=== PATIENT | female | born 1960 | race African-American/Black ===

== ENCOUNTER 2016-05-02 20:55 | Observation (INO) | payer OTHER, MEDICARE ==
[~2016-05-02] VITALS: Ht 154.9 cm; Wt 56.7 kg
[~2016-05-02 20:55] MED LIST: AZITHROMYCIN250 MG PO; FLEXERIL PO; HYDROCHLOROTHIA25 MG PO; HYDROXYZINE PAM25 MG PO; PREDNISONE50 MG PO; PROVENTIL0.09 MG/A1 PO; ROBITUSSIN AC SY5 ML PO; SEROQUEL 25MG T25 MG PO; TRAMADOL HCL50 M1 PO; TRANDATE-NORMO200 MG PO; ZITHROMAX Z-PA250 M1 PO; ZYPREXA10 M1 PO; ZYPREXA10 MG PO; ZYPREXA15 MG PO
--- NOTE | 2016-05-02 21:11 | NUR ---
PT TO TRIAGE FOR C/O VOMITING SINCE YESTERDAY, ABD PAIN 12/06 ON/OFF, DENIES DIARRHEA, LAST BM TODAY WNL. PT DENIES CHEST PAIN, DENIES SOB. VSS.
--- NOTE | 2016-05-02 21:42 | ED GI/GU/ABDOMINAL COMPLAINT ---
History of Present Illness General Chief Complaint: Nausea, Vomiting, Diarrhea Stated Complaint: VOMITING X2 DAYS Source: patient, old records Exam Limitations: poor historian Vital Signs & Intake/Output Vital Signs & Intake/Output ED Intake and Output 05/05 0000 05/04 1200 Intake Total 820 910 Output Total Balance 820 910 Intake, IV 100 800 Intake, Oral 720 110 Allergies Coded Allergies: aspirin (Mild, GI DISTRESS 02/23/16) Reconcile Medications Hydrochlorothiazide 25 MG TABLET 1 TAB PO DAILY HTN (Reported) Olanzapine (Zyprexa) 10 MG TAB 1 TAB PO AT BEDTIME SLEEP (Reported) Triage Note: PT TO TRIAGE FOR C/O VOMITING SINCE YESTERDAY, ABD PAIN 12/06 ON/OFF, DENIES DIARRHEA, LAST BM TODAY WNL. PT DENIES CHEST PAIN, DENIES SOB. VSS. Triage Nurses Notes Reviewed? yes ? n Is pt currently ? No HPI: Patient is a 55-year-old female presents complaining of vomiting and mid abdominal pain. Symptoms onset yesterday. Patient reports numerous episodes of vomiting, greater than 10 over the past 24 hours. No blood present in the emesis. Upper abdominal pain is a sharp/aching pain is currently moderate to severe. Patient has not taken any medication for her symptoms. History of gastric bypass in 2002. Patient is unsure of any other abdominal surgeries. Patient denies sick contacts, fevers, chills, diarrhea, urinary symptoms. (TONY BISHOP) Past History Travel History Traveled to [place] past 21 day No Medical History Any Pertinent Medical History? see below for history Neurological: ?HX OF STROKE IN COMPUTER BUT PATIENT DENIES SAME. 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 No (TONY BISHOP) Review of Systems Review of Systems Constitutional: Denies: chills, fever. EENTM: Reports: no symptoms. Respiratory: Denies: cough, short of breath. Cardiovascular: Denies: chest pain. GI: Reports: see HPI. Genitourinary: Reports: no symptoms. Musculoskeletal: Reports: no symptoms. Skin: Reports: no symptoms. Neurological/Psychological: Reports: no symptoms. Hematologic/Endocrine: Reports: no symptoms. Immunologic/Allergic: Reports: no symptoms. (TONY BISHOP) Physical Exam Physical Exam General Appearance: alert, awake Head: atraumatic, normal appearance Eyes: Bilateral: normal appearance, PERRL, EOMI. Ears, Nose, Throat, Mouth: hearing grossly normal, moist mucous membrane Neck: normal inspection, supple, full range of motion Respiratory: normal breath sounds, chest non-tender, no respiratory distress, lungs clear Cardiovascular: regular rate/rhythm Gastrointestinal: normal bowel sounds, soft, mild right lower quadrant tenderness. Moderate mid abdominal and left-sided abdominal tenderness. Negative Chanel sign. Back: normal inspection, normal range of motion Extremities: normal range of motion Neurologic/Psych: no motor/sensory deficits, awake, alert, oriented x 3 Skin: normal color, warm/dry Core Measures ACS in differential dx? No Severe Sepsis Present: No Septic Shock Present: No (TONY BISHOP) Progress Differential Diagnosis: SBO, partial small bowel obstruction, gastroenteritis, colitis, diverticulitis, pancreatitis Plan of Care: Orders Procedure Date/time Status Discharge Patient 05/04 UNK Active 05/03/2016 12:20:14 AM: Results of CT scan discussed with patient. Discussed with Dr. Grayson: have surgical Pa come to evaluate patient. Discussed with Livia PA: will come to see patient. Discussed with Dr. Amanda. Patient evaluated by surgical PA. Plan for patient to be brought in for inpatient observation for partial small bowel obstruction. (TONY BISHOP) Diagnostic Imaging: Viewed by Me: CT Scan. Discussed w/RAD: CT Scan. Radiology Impression: PATIENT: MAU CORONA PRESENT AGE: 55 PATIENT ACCOUNT NO: [id number] : 61 LOCATION: [facility] ORDERING PHYSICIAN: TONY TREVINO SERVICE DATE: 05/02/161537 EXAM TYPE: CAT - CT ABD & PELVIS W IV CONTRAST EXAMINATION: CT ABDOMEN AND PELVIS WITH CONTRAST CLINICAL INFORMATION: Abdominal pain and vomiting. History of gastric bypass. COMPARISON: CT report from 02/15/2014, images not available. TECHNIQUE: Multidetector volumetric imaging was performed of the abdomen and pelvis before and after the IV administration of 95 mL of Optiray 320 intravenous contrast. Sagittal and coronal reformatted images were obtained on the technologist's workstation. DLP: 291 mGy-cm FINDINGS: LUNG BASES: The visualized lung bases are unremarkable. LIVER, GALLBLADDER, AND BILIARY TREE: The liver is normal in size, shape, and attenuation. No focal hepatic lesion or biliary ductal dilatation is present. The gallbladder is not seen and is likely absent. The common bile duct is dilated, measuring 1.1 cm. PANCREAS: There is focal dilatation of the pancreatic duct in the pancreatic head. The remainder of the pancreatic duct is normal in caliber with no additional focal pancreatic abnormality. SPLEEN: Unremarkable. ADRENAL GLANDS: Unremarkable. KIDNEYS AND URETERS: The kidneys are normal in size, shape, and attenuation. No hydronephrosis, hydroureter, or calculi seen. No perinephric stranding. BLADDER: Unremarkable. GASTROINTESTINAL TRACT: The patient is status post Jose Rafael-en-Y gastric bypass. The Y limb appears proximally decompressed but distally dilated in the region of the jejunojejunal anastomosis. This is seen on series 2 image 41. A focal transition is seen at the distal aspect of the anastomosis, to decompressed bowel. Additional more distal anastomoses are noted, without additional evidence of bowel dilatation. There is gas and stool seen throughout the colon. No free air or free fluid. Normal appendix. ABDOMINAL WALL: No significant hernia is appreciated. LYMPH NODES: Normal. VASCULAR: Scattered atherosclerotic calcifications. IVC filter noted. PELVIC VISCERA: The uterus is not visualized. Cystic structure in the left adnexa noted, measuring 5 x 3.5 cm. OSSEOUS STRUCTURES: Multilevel degenerative changes in the spine. No acute or suspicious abnormality. IMPRESSION: Dilated jejunum extending to the jejunojejunal anastomosis, suggestive of a partial obstruction, as there is gas and stool seen throughout the colon. Dilated common bile duct, nonspecific in the setting of cholecystectomy. Cystic structure in the left adnexa. This is previously described. DICTATED BY: MARIBELL KHAN,ALEJANDRO DATE/TIME DICTATED:05/03/161 [employer]ORAL [employer]ES PROFESSOR:KATE DATE/TIME TRANSCRIBED:05/03/161 CONFIDENTIAL, DO NOT COPY WITHOUT APPROPRIATE AUTHORIZATION. <Electronically signed in Other Vendor System> SIGNED BY: MARIBELL KHAN,ALEJANDRO 05/03/16 0016 Initial ED EKG: none (TONY BISHOP) Departure Departure Disposition: STILL A PATIENT Condition: Stable Clinical Impression Primary Impression: Partial small bowel obstruction Referrals: TASNEEM VINCENT APRN (PCP/Family) Departure Forms: Customer Survey General Discharge Information Observation Note Spoke With: ROSEMARY GRAYSON MD Patient In: Non-ED OBS Care Area Rationale for Observation: My rational for observation is as follows: IV fluids, serial abdominal exams, nothing by mouth initially (TONY BISHOP) PA/INSERTING OPERATOR Co-Sign Statement Statement: ED Attending supervision documentation- x I saw and evaluated the patient. I have also reviewed all the pertinent lab results and diagnostic results. I agree with the findings and the plan of care as documented in the PA's/INSERTING OPERATOR's documentation. [] I have reviewed the ED Record and agree with the PA's/INSERTING OPERATOR's documentation. [] Additions or exceptions (if any) to the PAs/INSERTING OPERATOR's note and plan are summarized below: [] (NELSON KHAN,EMMANUEL) Departure Disposition: STILL A PATIENT Condition: Stable Clinical Impression Primary Impression: Partial small bowel obstruction Referrals: TASNEEM VINCENT APRN (PCP/Family) Departure Forms: Customer Survey General Discharge Information Observation Note Spoke With: ROSEMARY GRAYSON MD Patient In: Non-ED OBS Care Area Rationale for Observation: My rational for observation is as follows: IV fluids, serial abdominal exams, nothing by mouth initially
--- NOTE | 2016-05-02 22:29 | NUR ---
SEEN BY ER PA EKG DONE U/A OBTAINED SENT IV 20 RIGHT AC B/W OBTAINED SENT PEPCID 20 MG IVPB ZOFRAN 4 MG IVP
[2016-05-02 22:30] LABS: MEAN CORPUSCULAR VOLUME 78.4 FL (81.0-99.0); WHITE BLOOD CELL COUNT 5.2 /CUMM (4.8-10.8)
[2016-05-02 22:38] LABS: HEMATOCRIT 32.2 % (37-47); MEAN CORPUSCULAR HGB CONC 33.2 G/DL (33.0-37.0); MEAN PLATELET VOLUME 7.2 FL (7.4-10.4); PLATELET COUNT 343 /CUMM (130-400); RBC DISTRIBUTION WIDTH 17.7 % (11.5-14.5)
--- NOTE | 2016-05-02 23:26 | NUR ---
PT C/O 6/10 PAIN AND NAUSEA. PT MEDICATED WITH REGLAN AND MORPHINE PER ORDER
--- NOTE | 2016-05-03 00:16 | CT SCAN REPORT ---
EXAMINATION: CT ABDOMEN AND PELVIS WITH CONTRAST CLINICAL INFORMATION: Abdominal pain and vomiting. History of gastric bypass. COMPARISON: CT report from 02/15/2014, images not available. TECHNIQUE: Multidetector volumetric imaging was performed of the abdomen and pelvis before and after the IV administration of 95 mL of Optiray 320 intravenous contrast. Sagittal and coronal reformatted images were obtained on the technologist's workstation. DLP: 291 mGy-cm FINDINGS: LUNG BASES: The visualized lung bases are unremarkable. LIVER, GALLBLADDER, AND BILIARY TREE: The liver is normal in size, shape, and attenuation. No focal hepatic lesion or biliary ductal dilatation is present. The gallbladder is not seen and is likely absent. The common bile duct is dilated, measuring 1.1 cm. PANCREAS: There is focal dilatation of the pancreatic duct in the pancreatic head. The remainder of the pancreatic duct is normal in caliber with no additional focal pancreatic abnormality. SPLEEN: Unremarkable. ADRENAL GLANDS: Unremarkable. KIDNEYS AND URETERS: The kidneys are normal in size, shape, and attenuation. No hydronephrosis, hydroureter, or calculi seen. No perinephric stranding. BLADDER: Unremarkable. GASTROINTESTINAL TRACT: The patient is status post Jose Rafael-en-Y gastric bypass. The Y limb appears proximally decompressed but distally dilated in the region of the jejunojejunal anastomosis. This is seen on series 2 image 41. A focal transition is seen at the distal aspect of the anastomosis, to decompressed bowel. Additional more distal anastomoses are noted, without additional evidence of bowel dilatation. There is gas and stool seen throughout the colon. No free air or free fluid. Normal appendix. ABDOMINAL WALL: No significant hernia is appreciated. LYMPH NODES: Normal. VASCULAR: Scattered atherosclerotic calcifications. IVC filter noted. PELVIC VISCERA: The uterus is not visualized. Cystic structure in the left adnexa noted, measuring 5 x 3.5 cm. OSSEOUS STRUCTURES: Multilevel degenerative changes in the spine. No acute or suspicious abnormality. IMPRESSION: Dilated jejunum extending to the jejunojejunal anastomosis, suggestive of a partial obstruction, as there is gas and stool seen throughout the colon. Dilated common bile duct, nonspecific in the setting of cholecystectomy. Cystic structure in the left adnexa. This is previously described.
--- NOTE | 2016-05-03 01:04 | History & Physical ---
WHITLEY FRITZ 05/03/16 0058: General Information and HPI MD Statement: I have seen and personally examined MAU CORONA and documented this H&P. The patient is a 55 year old F who presented with a patient stated chief complaint of []. Source of Information: patient Exam Limitations: no limitations History of Present Illness: Mrs. Corona is a 55 year old schizophrenic, legally blind, current tobacco user, and s/p laparoscopic gastric bypass surgery in 2002 in [place]. She was in her usual state of health up until two days prior to admission where she developed nausea, followed by abdominal pain. She endorsed multiple episodes of vomiting without blood, prompting her visit to the emergency room. A CT abdomen/pelvis was performed, revealing a partial small bowel obstruction arising from the J-J anastamosis. Upon further interview, she states she has been passing flatus, even in the emergency room, and her last BM was normal in [facility] this morning. She denies diarrhea. Denies F/C, CP/SOB, or sick contacts. Allergies/Medications Allergies: Coded Allergies: aspirin (Mild, GI DISTRESS 02/23/16) Home Med list Azithromycin (Zithromax Z-Christiano) 250 MG CAP 1 TAB PO DAILY INFN TAKE 2 TABS ON DAY 1, THEN 1 TAB ONCE A DAY FOR 4 MORE DAYS [FLEXERIL] 5 MG 1 TAB PO TID PRN PAIN Hydrochlorothiazide 25 MG TABLET 1 TAB PO QDAY HIGH BLOOD PRESSURE Hydroxyzine Pamoate (Hydroxyzine Angi) 25 MG CAPSULE 1 CAP PO TID UNKNOWN ( Reported) Olanzapine (Zyprexa) 10 MG TAB 1 TAB PO AT BEDTIME SLEEP (Reported) Olanzapine (Zyprexa) 10 MG TABLET 1 TAB PO QPM bipolar Robitussin AC (Guaifenesin-Codeine Syrup) 10 ML LIQUID 1 TSP PO Q6 PRN COUGH Tramadol HCl 50 MG TABLET 1 TAB PO BIDP PRN PAIN Past History Travel History Traveled to [place] past 21 day No Medical History Neurological: ?HX OF STROKE IN COMPUTER BUT PATIENT DENIES SAME. EENT: blindness Cardiovascular: hypertension, hyperlipidemia Respiratory: NONE Gastrointestinal: GERD Hepatic: NONE Renal: NONE Musculoskeletal: NONE Psychiatric: schizophrenia Endocrine: NONE Blood Disorders: NONE Cancer(s): NONE CO OP/Reproductive: NONE History of MRSA: No History of VRE: No History of CDIFF: No Surgical History Surgical History: non-contributory Past Family/Social History Psychosocial History Primary Language: Hungarian Smoking Status: Current Everyday Smoker (1 pack every 3 days-since teen) ETOH Use: denies use Illicit Drug Use: denies illicit drug use Functional Ability Ambulation: independent Review of Systems Review of Systems Constitutional: Denies: chills, fever, unexplained weight loss. Cardiovascular: Denies: chest pain. Respiratory: Denies: short of breath, wheezing. GI: Reports: abdominal pain, nausea, vomiting. Denies: diarrhea, distention, bloody stool. Exam & Diagnostic Data Last 24 Hrs of Vital Signs/I&O Vital Signs Date Time Temp Pulse Resp B/P Pulse O2 O2 Flow FiO2 Ox Delivery Rate 05/02 2325 85 18 115/70 98 05/02 2106 99.3 79 16 135/80 97 Room Air Intake & Output 05/03 0800 05/03 0000 05/02 1600 Intake Total Output Total Balance Patient 125 lb Weight Physical Exam General Appearance Alert, Oriented X3, Cooperative Cardiovascular Regular Rate, Normal S1, Normal S2 Lungs Clear to Auscultation, Normal Air Movement Abdomen Soft, tender RUQ and epigastric region to deep palpation, negative [place] sign Extremities No Edema, Normal Pulses Last 24 Hrs of Labs/Cisco: Laboratory Tests 05/03/16 0049: Lactic Acid Cancelled 05/02/162214: Anion Gap 7, Estimated GFR > 60, BUN/Creatinine Ratio 23.3, Glucose 78, Lactic Acid < 0.5 L, Calcium 9.5, Total Bilirubin 0.6, AST 28, ALT 37, Alkaline Phosphatase 88, Total Protein 6.8, Albumin 4.0, Globulin 2.8, Albumin/Globulin Ratio 1.4, Amylase 89, Lipase 231, CBC w Diff MAN DIFF ORDERED, RBC 4.10 L, MCV 78.4 L, MCH 26.0 L, RDW 17.7 H, MPV 7.2 L, Segmented Neutrophils 31 L, Lymphocytes 63 H, Monocytes 4, Eosinophils 1, Basophils 1, Platelet Estimate ADEQUATE, Hypochromic-Microcytic 2+, Poikilocytosis 1+, Anisocytosis 2+, Microcytic Cells 2+, Target Cells FEW, PUBS MCHC 33.2 05/02/16 2150: Urine Color YEL, Urine Clarity CLEAR, Urine pH 6.0, Ur Specific [place] >= 1.030 , Urine Protein NEG, Urine Ketones NEG, Urine Nitrite NEG, Urine Bilirubin NEG, Urine Urobilinogen 0.2, Ur Leukocyte Esterase NEG, Ur Microscopic EXAM NOT REQUIRED, Urine Hemoglobin NEG, Urine Glucose NEG Diagnostic Data Other Results EXAM TYPE: CAT - CT ABD & PELVIS W IV CONTRAST EXAMINATION: CT ABDOMEN AND PELVIS WITH CONTRAST CLINICAL INFORMATION: Abdominal pain and vomiting. History of gastric bypass. COMPARISON: CT report from 02/15/2014, images not available. TECHNIQUE: Multidetector volumetric imaging was performed of the abdomen and pelvis before and after the IV administration of 95 mL of Optiray 320 intravenous contrast. Sagittal and coronal reformatted images were obtained on the technologist's workstation. DLP: 291 mGy-cm FINDINGS: LUNG BASES: The visualized lung bases are unremarkable. LIVER, GALLBLADDER, AND BILIARY TREE: The liver is normal in size, shape, and attenuation. No focal hepatic lesion or biliary ductal dilatation is present. The gallbladder is not seen and is likely absent. The common bile duct is dilated, measuring 1.1 cm. PANCREAS: There is focal dilatation of the pancreatic duct in the pancreatic head. The remainder of the pancreatic duct is normal in caliber with no additional focal pancreatic abnormality. SPLEEN: Unremarkable. ADRENAL GLANDS: Unremarkable. KIDNEYS AND URETERS: The kidneys are normal in size, shape, and attenuation. No hydronephrosis, hydroureter, or calculi seen. No perinephric stranding. BLADDER: Unremarkable. GASTROINTESTINAL TRACT: The patient is status post Jose Rafael-en-Y gastric bypass. The Y limb appears proximally decompressed but distally dilated in the region of the jejunojejunal anastomosis. This is seen on series 2 image 41. A focal transition is seen at the distal aspect of the anastomosis, to decompressed bowel. Additional more distal anastomoses are noted, without additional evidence of bowel dilatation. There is gas and stool seen throughout the colon. No free air or free fluid. Normal appendix. ABDOMINAL WALL: No significant hernia is appreciated. LYMPH NODES: Normal. VASCULAR: Scattered atherosclerotic calcifications. IVC filter noted. PELVIC VISCERA: The uterus is not visualized. Cystic structure in the left adnexa noted, measuring 5 x 3.5 cm. OSSEOUS STRUCTURES: Multilevel degenerative changes in the spine. No acute or suspicious abnormality. IMPRESSION: Dilated jejunum extending to the jejunojejunal anastomosis, suggestive of a partial obstruction, as there is gas and stool seen throughout the colon. Dilated common bile duct, nonspecific in the setting of cholecystectomy. Cystic structure in the left adnexa. This is previously described. DICTATED BY: ALEJANDRO REYNA MD DATE/TIME DICTATED:05/03/161 INTERACTIVE PRODUCER:KATE DATE/TIME TRANSCRIBED:05/03/161 CONFIDENTIAL, DO NOT COPY WITHOUT APPROPRIATE AUTHORIZATION. <Electronically signed in Other Vendor System> SIGNED BY: ALEJANDRO REYNA MD 05/03 0016 Assessment/Plan Assessment: A: 55 year old female s/p laparoscopic gastric bypass in 2002 now with abdominal pain and tenderness to RUQ/epigastric area with associated N/V with CT abd/ pelvis consistent with a narrowed J-J anastamosis with findings suggestive of a partial small bowel obstruction, although clinical exam findings of having flatus and BMs do not support this. AVSS. Plan: Will observe patient overnight on Dr. Grayson's service. Will hydrate with D5NS at 100ml/hr. Patient to remain NPO. Will review medications in am. Discussed with Dr. Grayson. As Ranked By This Provider Problem List: 1. Abdominal pain Core Measures/Miscellaneous Acute Coronary Syndrome ACS Diagnosis: No Cerebrovascular Accident CVA/TIA Diagnosis: No Congestive Heart Failure CHF Diagnosis: No Venous Thromboembolism VTE Risk Factors: Age > 40, Smoking VTE Prophylaxis Ordered Inpt: Mech & Pharm No Mech VTE prophylaxis d/t: No contraindications No VTE Pharm Prophylaxis d/t: No contraindications VTE Diagnosis: No VTE Type: NONE VTE Confirmed by (Test): NONE Severe Sepsis Severe Sepsis Present: No Septic Shock Septic Shock Present: No Miscellaneous Documentation Attending Case Discussed With: Dr. Grayson Primary Care Physician: TASNEEM VINCENT APRN Patient sees these Specialists n/a Level of Patient Care: General Surgical ROSEMARY GRAYSON MD 05/03/16 1315: Attending MD Review Statement Attending Statement Attending MD Statement: examined this patient, discuss w/resident/PA/DIGITAL ANALYST, reviewed images Attending Assessment/Plan: Patient s/p gastric bypass and open cholecytectomy many years ago presents with acute onset of mid abdominal pain and vomiting. He symptoms have resolved now and c/o chest pain after IV contrast dye. Denies heartburn, dysphagia, odynophagia or regurgitation. CT personally reviewed. Findings show dilated small bowel at the jejujejunostomy site. This is a normal finding in the post gastic bypass patient. However, in light of her abdominal pain and vomiting that prompted admission, recommend repeat CT with oral contrast. If no obstructive process, she can be discharged home.
--- NOTE | 2016-05-03 01:17 | NUR ---
PT A/O X4. RESP UNLABORED. SKIN WARM AND DRY. PT APPEARS COMFORTABLE. NO APPARENT DISTRESS. WILL CONTINUE TO MONITOR.
--- NOTE | 2016-05-03 02:21 | NUR ---
[facility] ASSIGNMENT [phone]
[2016-05-03 02:56] VITALS: BP 118/70
--- NOTE | 2016-05-03 05:38 | Admission Core Measures ---
Admission Lab Results I reviewed the following labs: Laboratory Tests 05/03 05/02 0040 0565 Chemistry Sodium (137 - 145 mmol/L) 141 Potassium (3.5 - 5.1 mmol/L) 4.1 Chloride (98 - 107 mmol/L) 106 Carbon Dioxide (22 - 30 mmol/L) 28 Anion Gap (5 - 16) 7 BUN (7 - 17 mg/dL) 14 Creatinine (0.5 - 1.0 mg/dL) 0.6 Estimated GFR (>60 ml/min) > 60 BUN/Creatinine Ratio (7 - 25 %) 23.3 Glucose (65 - 99 mg/dL) 78 Lactic Acid (0.7 - 2.1 mmol/L) Cancelled < 0.5 L Calcium (8.4 - 10.2 mg/dL) 9.5 Total Bilirubin (0.2 - 1.3 mg/dL) 0.6 AST (14 - 36 U/L) 28 ALT (9 - 52 U/L) 37 Alkaline Phosphatase (<127 U/L) 88 Total Protein (6.3 - 8.2 g/dL) 6.8 Albumin (3.5 - 5.0 g/dL) 4.0 Globulin (1.9 - 4.2 gm/dL) 2.8 Albumin/Globulin Ratio (1.1 - 2.2 %) 1.4 Amylase (30 - 110 U/L) 89 Lipase (23 - 300 U/L) 231 Hematology CBC w Diff MAN DIFF ORDERED WBC (4.8 - 10.8 /CUMM) 5.2 RBC (4.20 - 5.40 /CUMM) 4.10 L Hgb (12.0 - 16.0 G/DL) 10.7 L Hct (37 - 47 %) 32.2 L MCV (81.0 - 99.0 FL) 78.4 L MCH (27.0 - 31.0 PG) 26.0 L RDW (11.5 - 14.5 %) 17.7 H Plt Count (130 - 400 /CUMM) 343 MPV (7.4 - 10.4 FL) 7.2 L Segmented Neutrophils (42.2 - 75.2 %) 31 L Lymphocytes (20.5 - 51.1 %) 63 H Monocytes (1.7 - 9.3 %) 4 Eosinophils (0 - 5.0 %) 1 Basophils (0.0 - 2.0 %) 1 Platelet Estimate (ADEQUATE) ADEQUATE Hypochromic-Microcytic 2+ Poikilocytosis 1+ Anisocytosis 2+ Microcytic Cells 2+ Target Cells FEW PUBS MCHC (33.0 - 37.0 G/DL) 33.2 05/02 2150 Urines Urine Color (YEL,AMB,STR) YEL Urine Clarity (CLEAR) CLEAR Urine pH (5.0 - 8.0) 6.0 Ur Specific [place] (1.001 - 1.035) >= 1.030 Urine Protein (NEG,<30 MG/DL) NEG Urine Ketones (NEG) NEG Urine Nitrite (NEG) NEG Urine Bilirubin (NEG) NEG Urine Urobilinogen (0.1 - 1.0 EU/dl) 0.2 Ur Leukocyte Esterase (NEG) NEG Ur Microscopic EXAM NOT REQUIRED Urine Hemoglobin (NEG) NEG Urine Glucose (N MG/DL) NEG Admission Meds I reviewed the following Meds: Current Medications Sig/Zachariah Start time Last Medication Dose Stop Time Status Admin Heparin Sodium 5,000 UNIT Q8 05/03 0600 AC (Porcine) Acute Coronary Syndrome Inclusion Criteria ACS Diagnosis No Inpatient Core Measures LDL Reminder: If No, please order W/I first 24hr of stay Congestive Heart Failure Inclusion Criteria CHF Diagnosis No Cerebrovascular accident Inclusion Criteria CVA/TIA Diagnosis No Inpatient Core Measures Bedside Swallow Eval Reminder: If BSE failed, place ST order Antithrombotic Reminder: Order Antithrombotic Medication by end of day 2 Antithrombotic Reminder: Document Reason Antithrombotic Not ordered by end of day 2 AFIB/Flutter Reminder: If Present, add to problem list AFIB/Flutter Reminder: Order Anticoag Medication for pts with AFIB/Flutter Atherosclerosis Reminder: If Present, add to problem list LDL Reminder: If No, please order W/I first 24hr of stay PT Order Reminder: If No, please order Venous thromboembolism Inpatient Core Measures VTE Risk Factors: Age > 40, Smoking VTE Prophylaxis Ordered Inpt Mech & Pharm No Mech VTE prophylaxis d/t No contraindications No VTE Pharm Prophylaxis d/t No contraindications Inclusion Criteria - Per Current guidelines, there needs to be overlap - treatment for the first 5 days of Warfarin therapy. - Parenteral Anticoagulation (IV or SC) needs to be - given along with Warfarin therapy. VTE Diagnosis No VTE Type NONE VTE Confirmed by (Test) NONE Problem List As ranked by this Provider includes Assessment & Plan 1. Abdominal pain HOME MEDS Home Med List Azithromycin (Zithromax Z-Christiano) 250 MG CAP 1 TAB PO DAILY INFN [FLEXERIL] 5 MG 1 TAB PO TID PRN PAIN Hydrochlorothiazide 25 MG TABLET 1 TAB PO QDAY HIGH BLOOD PRESSURE Hydroxyzine Pamoate (Hydroxyzine Angi) 25 MG CAPSULE 1 CAP PO TID UNKNOWN ( Reported) Olanzapine (Zyprexa) 10 MG TAB 1 TAB PO AT BEDTIME SLEEP (Reported) Olanzapine (Zyprexa) 10 MG TABLET 1 TAB PO QPM bipolar Robitussin AC (Guaifenesin-Codeine Syrup) 10 ML LIQUID 1 TSP PO Q6 PRN COUGH Tramadol HCl 50 MG TABLET 1 TAB PO BIDP PRN PAIN
--- NOTE | 2016-05-03 08:21 | PN- General Surgery ---
See Addendum Subjective Subjective: Pt is a 55 yo F with a hx of gastric bypass many years ago, who is now HD #1 with N/V and radiographic concerns for partial sbo. She last had a BM yesterday and was passing flatus in the ED, but reports no flatus over the past few hours this morning. She continues to c/o nausea, but no further emesis. Pain has improved slightly, but still 5/10, "stabbing" in nature, in the epigastric area. It also radiates to the substernal area, but not described specifically as "heartburn." Otherwise denies fever, chest pain, shortness of breath. Objective Vital Signs and I&Os Vital Signs Date Time Temp Pulse Resp B/P Pulse O2 O2 Flow FiO2 Ox Delivery Rate 05/03 0256 97.9 61 20 118/70 98 Room Air 05/03 0220 97.9 55 18 103/54 96 05/03 0130 98.0 58 18 103/69 96 Room Air 05/02 2325 85 18 115/70 98 05/02 2106 99.3 79 16 135/80 97 Room Air Intake & Output 05/03 1600 / 0800 02 0000 / 1600 05/02 0800 02/ 0000 Intake Total 500 Output Total Balance 500 Intake, IV 400 Intake, Oral 100 Patient 125 lb 125 lb Weight Physical Exam: General: Pt is awake and alert. She is legally blind. Appears in NAD. Cardiac: Regular Pulmonary: CTA Abdomen: Soft, nondistended. There is mild tenderness to deep palpation in the epigastric area only. Nontender otherwise. There is an old, well healed midline incision AND a RUQ oblique incision, but no abdominal wall defects are appreciated. Normal BS are heard. Assessment/Plan Assessment/Plan Pt is a 55 yo F with a hx of legal blindness, schizophrenia, and htn, who is s/p open gastric bypass in 2000 and now presents with epigastric abdominal pain and radiographic concerns for partial SBO. Plan: -Continue npo with IVF @100/hr. -Pt is requesting pain meds, so will add low dose morphine and IV APAP as needed. -Add Protonix this AM for GI ppx. Consider adding mylicon if pain is not relieved. -Dr. Mcarthur to review CT and see pt this AM. If pain persists, surgical exploration may be indicated. -SC heparin and alps for DVT ppx. -No labs needed this AM. Will check tomorrow AM. If pt needs surgery, will do EKG preop for baseline. -I attempted to call pt's pharmacy in order to reconcile meds, but they are not open yet. Will re-try after 9 AM. [facility] in [place] [phone]. Core Measures/Miscellaneous Venous Thromboembolism VTE Risk Factors: Acute medical illness, Age > 40 VTE Contraindications: No Contraindications VTE Prophylaxis Ordered Inpt Mech & Pharm VTE Diagnosis: No VTE Type: NONE VTE Confirmed by (Test): NONE Beta Jose Is Beta Jose a Home Med? No Antibiotics Is Patient on Antibiotics? No
[2016-05-03] MEDS ORDERED: HYDROCHLOROTHIA25 M1 PO ×2 (13:19→13:23)
[2016-05-03 14:02] VITALS: BP 100/68
--- NOTE | 2016-05-03 16:34 | NUR ---
SURGICAL BELINDA WOOD AT PTS BEDSIDE WITH THIS RN. PT TO GO DOWN FOR CT SCAN WITH ORAL CONTRAST. PT TO DRINK ONE BOTTLE OF BARIATRIC CONTRACT AT THIS TIME. PT THEN TO DRINK 1/2 OF SECOND BOTTLE AT 1730. PT TO GO DOWN FOR CT SCAN AT 1830. PT SIGNED FORM AND UNDERSTANDS INSTRUCTIONS. WILL CONTINUE TO MONITOR.
--- NOTE | 2016-05-03 19:22 | NUR ---
LATE NURSING ENTRY: PT LEFT FLOOR VIA STRETCHER FOR CT SCAN AT 1830. PT ARRIVED BACK TO FLOOR AT 1900 VIA STRETCHER.
--- NOTE | 2016-05-03 20:45 | CT SCAN REPORT ---
EXAMINATION: CT ABDOMEN AND PELVIS WITH CONTRAST CLINICAL INFORMATION: Nausea and abdominal pain assess for obstruction COMPARISON: Prior studies including 05/02/2016 up to 01/11/2014 TECHNIQUE: Multidetector volumetric imaging was performed from the superior aspect of the liver through the pubic symphysis following administration of oral contrast. Sagittal and coronal reformatted images were obtained on the technologist's workstation. DLP: 338 mGy-cm FINDINGS: LUNG BASES: Mild dependent atelectasis, increased from yesterday's study LIVER, GALLBLADDER, AND BILIARY TREE: The liver is normal in size, shape, and attenuation. No focal hepatic lesion or biliary ductal dilatation is present. Gallbladder surgically absent. Common bile duct remains prominent but unchanged from yesterday's study. PANCREAS: Unremarkable. SPLEEN: Unremarkable. ADRENAL GLANDS: Unremarkable. KIDNEYS AND URETERS: Difficult to determine if there is tiny calcifications within the renal parenchyma or whether this is related to residual contrast from yesterday's study. I would favor this representing residual contrast in the collecting system. There is dense contrast within the bladder. BLADDER: Distended with dense contrast causing beam hardening artifact in the pelvis. GASTROINTESTINAL TRACT: The oral contrast that was given passed readily through the gastrojejunal anastomosis into the nonobstructed small bowel. There is a prominent loop of small bowel again seen in the left midabdomen however I do not appreciate any obstructive changes from this with the oral contrast readily passing through this area into otherwise unremarkable small bowel loops. Stool seen within the colon. ABDOMINAL WALL: No significant hernia is appreciated. Incidental note is made of calcification within the paraspinal musculature bilaterally. This is relatively symmetric in appearance and not significantly changed from yesterday's study. LYMPH NODES: Normal. VASCULAR: Prominent aortic calcification. IVC filter in place PELVIC VISCERA: Left adnexal cyst is again identified better delineated on yesterday's study and partially obscured by beam hardening artifact on the current exam. OSSEOUS STRUCTURES: No acute bony abnormality. IMPRESSION: I do not appreciate any obstruction on the current examination. The oral contrast that was given readily passes through the gastrojejunal anastomosis into nonobstructed loops of small bowel. Other chronic appearing changes as described above
[2016-05-03 21:30] VITALS: BP 120/70
--- NOTE | 2016-05-03 21:30 | NUR ---
PER SURG RONNELL LOERA FOR PT TO HAVE BOXED LUNCH AT THIS TIME. REGULAR DIET ORDER ACKNOWLEDGED. PT TOLERATED BOXED LUNCH, NO C/O N/V. WILL CONTINUE TO MONITOR.
--- NOTE | 2016-05-03 22:45 | Patient Discharge Instructions ---
Discharge Instructions General Discharge Information You were seen/treated for: PARTIAL SBO You had these procedures: CONSERVATIVE TREATMENT WITH BOWEL REST, HYDRATION Watch for these problems: NAUSEA, VOMITING, INCREASED ABDOMINAL PAIN Diet Continue normal diet: Yes ( TOLERATED) Activity Full Activity/No Limits: No Activity Self Limited: Yes Other activity limits: AVOID STRENUOUS ACTIVITY Acute Coronary Syndrome Inclusion Criteria At DC or during hospital stay patient has or had the following: ACS DIAGNOSIS No Discharge Core Measures Meds if any: Prescribed or Continued at Discharge Meds if any: NOT Prescribed or Continued at Discharge Congestive Heart Failure Inclusion Criteria At DC or during hospital stay patient has or had the following: CHF DIAGNOSIS No Discharge Core Measures Meds if any: Prescribed or Continued at Discharge Meds if any: NOT Prescribed or Continued at Discharge Cerebrovascular accident Inclusion Criteria At DC or during hospital stay patient has or had the following: CVA/TIA Diagnosis No Discharge Core Measures Meds if any: Prescribed or Continued at Discharge Meds if any: NOT Prescribed or Continued at Discharge Venous thromboembolism Inclusion Criteria VTE Diagnosis No VTE Type NONE VTE Confirmed by (Test) NONE Discharge Core Measures - Per Current guidelines, there needs to be overlap - treatment for the first 5 days of Warfarin therapy. - If discharged on Warfarin prior to 5 days of - overlap therapy, the patient will need to be - assessed for post discharge needs including - *Post discharge parental anticoagulation - *Warfarin and/or parental anticoagulation education - *Follow up date to check INR post discharge At least 5 days overlap therapy as Inpatient No Meds if any: Prescribed or Continued at Discharge Note: Overlap Therapy is Warfarin and Anticoagulant Meds if any: NOT Prescribed or Continued at Discharge
[2016-05-04 06:56] VITALS: BP 110/70
--- NOTE | 2016-05-04 07:30 | PN- General Surgery ---
See Addendum Subjective Subjective: Pt feeling good this morning, slept well, no complaints Tolerated a bit of food last night but has not had a complete meal yet +flatus, no bm in 24 hrs but had a regular bm 2 days ago Objective Vital Signs and I&Os Vital Signs Date Time Temp Pulse Resp B/P Pulse O2 O2 Flow FiO2 Ox Delivery Rate 05/04 0656 98.3 58 20 110/70 96 Room Air 05/03 2130 98.2 60 20 120/70 98 05/03 1402 97.8 60 20 100/68 97 Room Air Intake & Output 05/04 0800 05/04 0000 05/03 1600 05/03 0800 05/03 0000 05/02 1600 Intake Total 910 1040 700 500 Output Total Balance 910 1040 700 500 Intake, IV 800 800 700 400 Intake, Oral 110 240 100 Patient 125 lb 125 lb Weight Physical Exam: VSS, afebrile General: alert and oriented times three Chest:clear anteriorly bilaterally, RRR Abd: soft, nontender throughout even to deep palpation, nondistended, good bs Ext: warm, no edema Results Recent Imaging Studies: CT abd/pelvis with oral contrast I do not appreciate any obstruction on the current examination. The oral contrast that was given readily passes through the gastrojejunal anastomosis into nonobstructed loops of small bowel. Other chronic appearing changes as described above Assessment/Plan Assessment/Plan 55 yo female with past history of lgb, admitted with abd pain/nausea ?sbo Pain resolved CT with oral contrast last night reveals no sbo, contrast readily passes through without any obstruction. Regular diet per Dr Blue valle ivf/pain meds restart home meds dc home if tolerates breakfast Core Measures/Miscellaneous Venous Thromboembolism VTE Risk Factors: Acute medical illness, Age > 40 VTE Contraindications: No Contraindications VTE Prophylaxis Ordered Inpt Mech & Pharm VTE Diagnosis: No VTE Type: NONE VTE Confirmed by (Test): NONE Beta Jose Is Beta Jose a Home Med? No Antibiotics Is Patient on Antibiotics? No
[2016-05-04 08:26] LABS: ABSOLUTE BASOPHIL COUNT 0 /CUMM (0.0-0.2); ABSOLUTE EOSINOPHIL COUNT 0 /CUMM (0.0-0.7); ABSOLUTE GRANULOCYTE CT 0.8 /CUMM (1.4-6.5); ABSOLUTE LYMPH COUNT 1.9 /CUMM (1.2-3.4); ABSOLUTE MONOCYTE COUNT 0.3 /CUMM (0.10-0.60); BASOPHIL % 0.5 % (0.0-2.0); EOSINOPHIL % 1.4 % (0-5); HEMATOCRIT 27.6 % (37-47); MEAN CORPUSCULAR HGB CONC 32.5 G/DL (33.0-37.0); MEAN CORPUSCULAR VOLUME 79.8 FL (81.0-99.0); MEAN PLATELET VOLUME 7.7 FL (7.4-10.4); PLATELET COUNT 243 /CUMM (130-400); RBC DISTRIBUTION WIDTH 18.1 % (11.5-14.5); RED BLOOD CELL CT 3.46 /CUMM (4.20-5.40); WHITE BLOOD CELL COUNT 3.1 /CUMM (4.8-10.8)
[2016-05-04 13:49] VITALS: BP 122/86
--- NOTE | 2016-05-04 14:51 | Surg Short-stay <48hrs Dis Sum ---
Visit Information Visit Dates Admission Date: 05/03/16 Discharge Date: 05/04/16 Surgical Short Stay DC Summary Admission Diagnosis: sbo Final Diagnosis: gastroenteritis Procedure(s): none Summary/Significant Findings: symptoms resolved with observation. Repeat Ct with oral contrast showed no obstruction. Condition at Discharge: good Discharge Disposition: home or self care Discharge instructions provided to patient/family: Yes Post discharge follow-up plan: pcp
== END 2016-05-04 15:20 ==
LOC: CANRESERV → ENRESERVTM → ENRESERVDT → ERH 20:55 → ERHI 05-03 00:50 → ENPENDDIS 05-03 00:50 → 2NA 05-03 02:46
PROVIDERS: Physician Assistant; Physician Assistant Surgical; ADMIT Surgery
DX: K52.9 Noninfective gastroenteritis and colitis, unspecified (principal); F20.9 Schizophrenia, unspecified; H54.8 Legal blindness, as defined in USA; F17.200 Nicotine dependence, unspecified, uncomplicated; I10 Essential (primary) hypertension; E78.5 Hyperlipidemia, unspecified; K21.9 Gastro-esophageal reflux disease without esophagitis
CPT/HCPCS: 36415; 74176; 74177; 81003; 82436; 93005; 93010; 96372; 96374; 96375; G0378; J0131; J1644; J2405; J2765; J7042

== ENCOUNTER 2016-05-25 20:35 | Emergency (ER) | payer OTHER, MEDICARE ==
[~2016-05-25] VITALS: Ht 154.9 cm; Wt 59.0 kg
[~2016-05-25 20:35] MED LIST changes: +HYDROCHLOROTHIA25 M1 PO
[2016-05-25 20:39] VITALS: BP 163/83
--- NOTE | 2016-05-25 21:16 | ED UPPER/LOWER EXTREMITY COMPL ---
History of Present Illness General Chief Complaint: General Adult Stated Complaint: LEFT GREAT TOE INFECTED Source: patient, family Exam Limitations: no limitations Vital Signs & Intake/Output Vital Signs & Intake/Output Vital Signs Date Time Temp Pulse Resp B/P Pulse O2 O2 Flow FiO2 Ox Delivery Rate 05/25 2038 98.7 74 18 163/83 98 Room Air Allergies Coded Allergies: aspirin (Mild, GI DISTRESS 02/23/16) Reconcile Medications Cephalexin (Keflex) 500 MG CAPSULE 1 CAP PO 4 TIMES/DAY PRN TOE INFECTION X 10 DAYS Hydrochlorothiazide 25 MG TABLET 1 TAB PO DAILY HTN (Reported) Ibuprofen 600 MG TABLET 1 TAB PO TID PRN PAIN with food Olanzapine (Zyprexa) 10 MG TAB 1 TAB PO AT BEDTIME SLEEP (Reported) Triage Note: COMPLAINS OF L GREAT TOE INFECTION FOR THE PAST FEW DAYS Triage Nurses Notes Reviewed? yes Onset: Gradual Duration: day(s): Timing: recent history Severity: mild Pain/Injury Location: Left: 1st toe. Method of Injury: "The toe nail has gotten really big." Modifying Factors: Worsens With: other (worse with wearing shoes). Associated Symptoms: left toe pain HPI: 55-year-old woman presents with left great toe pain. She notes that the toenail has gotten thicker over the past several months. It hurts when she puts on shoes. She notes also that the plantar aspect of her left great toe feels slightly more red and tender to palpation. She notes no trauma or deformity. She is otherwise well and has no other concerns. Past History Travel History Traveled to [place] past 21 day No Medical History Any Pertinent Medical History? see below for history Neurological: ?HX OF STROKE IN COMPUTER BUT PATIENT DENIES SAME. EENT: blindness Cardiovascular: hypertension, hyperlipidemia Respiratory: NONE Gastrointestinal: GERD Hepatic: NONE Renal: NONE Musculoskeletal: NONE Psychiatric: schizophrenia Endocrine: NONE Blood Disorders: NONE Cancer(s): NONE TIN CAN FEEDER/Reproductive: NONE History of MRSA: No History of VRE: No History of CDIFF: No Surgical History Surgical History: non-contributory Psychosocial History Who do you live with Patient/Self What is your primary language Malay Tobacco Use: Never used ETOH Use: denies use Illicit Drug Use: denies illicit drug use Family History Hx Contributory? No Review of Systems Review of Systems Constitutional: Reports: no symptoms. EENTM: Reports: no symptoms. Respiratory: Reports: no symptoms. Cardiovascular: Reports: no symptoms. Gastrointestinal/Abdominal: Reports: no symptoms. Genitourinary: Reports: no symptoms. Musculoskeletal: Reports: no symptoms. Skin: Reports: no symptoms. Neurological/Psychological: Reports: no symptoms. Hematologic/Endocrine: Reports: no symptoms. Immunological: Reports: no symptoms. All Other Systems: Reviewed and Negative Physical Exam Physical Exam General Appearance: well developed/nourished, mild distress Head: atraumatic Eyes: Bilateral: normal appearance. Ears, Nose, Throat: normal pharynx, normal ENT inspection, hearing grossly normal Neck: normal inspection, supple Cardiovascular/Respiratory: normal breath sounds Back: normal inspection Leg Left: toes on both feet show significant onychomycosis, with a very thickened left great toenail. There is minimal tenderness on the plantar aspect of the left great toe with minimal erythema. No drainage no lymphangitic streaking. The area of tenderness is approximately 1.5 cm Skin: intact, normal color, warm/dry Lymphatic: no anterior cervical danya Progress Differential Diagnosis: cellulitis, onychomycosis versus other Plan of Care: Discussed at length with patient and family. Patient referred to podiatry. We' ll give Keflex for very mild cellulitis-paronychia Departure Departure Disposition: HOME OR SELF CARE Condition: Stable Clinical Impression Primary Impression: Paronychia Secondary Impressions: Onychomycosis Referrals: TASNEEM VINCENT APRN (PCP/Family) Departure Forms: Customer Survey General Discharge Information Prescriptions: Current Visit Scripts Cephalexin (Keflex) 1 CAP PO 4 TIMES/DAY PRN TOE INFECTION #40 CAP X 10 DAYS Ibuprofen 1 TAB PO TID PRN PAIN #30 TAB with food
[2016-05-25] MEDS ORDERED: IBUPROFEN600 M1 PO (21:21)
[2016-05-25] MEDS ORDERED: KEFLEX500 M1 PO (21:21)
== END 2016-05-25 21:28 ==
LOC: ERH 20:35
DX: L03.032 Cellulitis of left toe (principal); B35.1 Tinea unguium

== ENCOUNTER 2016-06-02 15:51 | Emergency (ER) | payer OTHER, MEDICARE ==
[~2016-06-02] VITALS: Ht 154.9 cm; Wt 59.0 kg
[~2016-06-02 15:51] MED LIST changes: +IBUPROFEN600 M1 PO; +KEFLEX500 M1 PO
[2016-06-02 16:01] VITALS: BP 172/100
[2016-06-02] MEDS ORDERED: CYCLOBENZAPRINE5 M2 PO (16:26)
[2016-06-02] MEDS ORDERED: MEDROL4 M2 PO (16:26)
--- NOTE | 2016-06-02 16:27 | ED NECK/BACK PAIN COMPLAINT ---
History of Present Illness General Chief Complaint: Lower Extremity Problems Stated Complaint: L HIP/LEG NUMBNESS Source: patient, old records Exam Limitations: no limitations Vital Signs & Intake/Output Vital Signs & Intake/Output Vital Signs Date Time Temp Pulse Resp B/P Pulse O2 O2 Flow FiO2 Ox Delivery Rate 06/02 1601 97.8 94 20 172/100 97 Room Air ED Intake and Output 06/03 0000 06/02 1200 Intake Total Output Total Balance Patient 130 lb Weight Allergies Coded Allergies: aspirin (Mild, GI DISTRESS 06/02/16) Reconcile Medications Cephalexin (Keflex) 500 MG CAPSULE 1 CAP PO 4 TIMES/DAY PRN TOE INFECTION X 10 DAYS Cyclobenzaprine HCl 5 MG TABLET 1 TAB PO TIDPRN PRN pain Hydrochlorothiazide 25 MG TABLET 1 TAB PO DAILY HTN (Reported) Ibuprofen 600 MG TABLET 1 TAB PO TID PRN PAIN with food Methylprednisolone. (Medrol) 4 MG TAB.DS.PK 1 DP PO AD radiculopathy 6 on day 1 then reduce by one tablet daily until gone Olanzapine (Zyprexa) 10 MG TAB 1 TAB PO AT BEDTIME SLEEP (Reported) Triage Note: TRIAGE: PT TO ER C/C PAIN FROM L HIP TO FOOT. ONSET LAST NIGHT. CONSTANT SINCE ONSET. DENIES ANY INJURY. TOOK TYLENOL WITH NO RELIEF. Triage Nurses Notes Reviewed? yes Onset: Abrupt Duration: day(s): (2), constant Timing: recent history Quality/Severity: mild, moderate (aching numbness) Location: paraspinous muscles Radiation: buttocks, upper legs Method of Injury: unknown Loss of Consciousness: no loss of consciousness Modifying Factors: movement, rest Associated Symptoms: denies HPI: 55-year-old female presents emergency room for evaluation complaining of bilateral lower back pain that she states is radiating down into her legs left greater than right for the past 2 days. Symptoms are sudden in onset she reports intermittent numbness and tingling in her legs. No recent trauma injury or fall. She is not taken anything for her symptoms per the patient. She denies any abdominal pain nausea or vomiting no fever no chills. She denies any swelling to her legs redness warmth or rashes to her skin. There are no modifying factors. Pain is aching constant waxing and waning in intensity. Her lower back pain is worse with change in position better at rest (HANHOWARD ESPINAL) Past History Travel History Traveled to [place] past 21 day No Medical History Any Pertinent Medical History? see below for history Neurological: ?HX OF STROKE IN COMPUTER BUT PATIENT DENIES SAME. 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 No (HOWARD TURNER) Review of Systems Review of Systems Constitutional: Reports: see HPI. All Other Systems: Reviewed and Negative Comments Review of systems: See HPI, All other systems negative. Constitutional, no chills no fever, no malaise HEENT: no sore throat no congestion, no ear pain Cardiovascular: No chest pain , no palpitation Skin, no rashes, no change in skin Respiratory: No dyspnea no cough no sputum GI: No nausea no vomiting, no diarrhea, : No dysuria No hematuria, no frequency, no discharge Muscle skeletal: No joint pain, no joint swelling, back pain, no neck pain, Neurologic: No numbness no headache Psych: No stress Heme/endocrine: No bruising no bleeding Immunology: No lymphadenopathy (HOWARD TURNER) Physical Exam Physical Exam General Appearance: well developed/nourished, no apparent distress, alert, awake Neck: normal inspection, supple, full range of motion Comments: Well-developed well-nourished patient in no apparent distress. HEENT: Atraumatic, extraocular motion intact Neck: Supple, FROM, Back: FROM, no midline tenderness bilateral paralumbar muscle tenderness palpation Cardiovascular: Regular rate and rhythms no murmurs Respiratory: No respiratory distress. Patient speaking in full complete sentences. Breath sounds clear to auscultation bilaterally: NO W/R/R Upper Extremities: full range of motion Hip/Pelvis: Atraumatic/Stable. FROM Knee: Atraumatic/stable. FROM. No joint swelling, no effusion. No laxity. Leg: Atraumatic. Nontender. No edema, 5 out of 5 strength in the lower extremity, normal dorsiflexion of great toe bilaterally, gross sensation is intact, Ankle/Foot: Atraumatic/stable. Skin intact. FROM. No swelling, no effusion. No laxity on exam Pulses: Normal/equal DP/PT pulses bilaterally. Brisk cap refill Neuro: Alert and oriented x3 Skin: Warm & dry;No appreciable rash on exposed skin Psych: Mood affect normal, normal memory normal judgment. (HOWARD TURNER) Progress Differential Diagnosis: cauda equina syn, herniated disc, myofascial strain, pyelo/UTI, sciatica, spinal cord inj Plan of Care: Current Medications Sig/Zachariah Start time Last Medication Dose Stop Time Status Admin Prednisone 60 MG ONCE ONE 06/02 1629 UNVr 06/02 163 Patient clinically looks well. No urinary bowel dysfunction. No numbness in the genital area. Strength intact. Gross sensation intact. Patient resting comfortably and in no apparent distress. Pain is worse with range of motion. Pain is reproducible IN back with no bruising or ecchymosis noted. . Patient is to follow-up with primary care doctor. May need MRI of the lower back at some point time. No concerns for cauda equina at this point time. I considered this diagnosis but patient does not have any symptoms consistent with cauda equina. Patient has no secondary causes of back pain. No cardiac, pulmonary, or abdominal complaints. No abdominal pain on exam. Cardiac pulmonary exam within normal limits. No rashes, afebrile, denies recent weight loss, dizziness, lightheadedness. Patient was ambulatory with steady gait on discharge, she will follow-up with her primary care physician this week (HOWARD TURNER) Departure Departure Time of Disposition: 1624 Disposition: HOME OR SELF CARE Condition: Stable Clinical Impression Primary Impression: Lumbar radiculopathy Referrals: TASNEEM VINCENT APRN (PCP/Family) Additional Instructions: Follow up with your primary care physician this week. Medrol Dosepak as discussed Flexeril as directed interchange ICE heat to your lower back and legs as needed Departure Forms: Customer Survey General Discharge Information Prescriptions: Current Visit Scripts Methylprednisolone. (Medrol) 1 DP PO AD #1 DP 6 on day 1 then reduce by one tablet daily until gone Cyclobenzaprine HCl 1 TAB PO TIDPRN PRN pain #12 TAB (CHARISMA TREVINO,HOWARD) PA/ELECTROLOGIST Co-Sign Statement Statement: ED Attending supervision documentation- [] I saw and evaluated the patient. I have also reviewed all the pertinent lab results and diagnostic results. I agree with the findings and the plan of care as documented in the PA's/ELECTROLOGIST's documentation. [X] I have reviewed the ED Record and agree with the PA's/ELECTROLOGIST's documentation. [] Additions or exceptions (if any) to the PAs/ELECTROLOGIST's note and plan are summarized below: [] (BELKYS KHAN,LIZETH)
== END 2016-06-02 16:32 ==
LOC: ERH 15:51
DX: M54.16 Radiculopathy, lumbar region (principal)

== ENCOUNTER 2016-06-05 21:05 | Emergency (ER) | payer OTHER, MEDICARE ==
[~2016-06-05 21:05] MED LIST changes: +CYCLOBENZAPRINE5 M2 PO; +MEDROL4 M2 PO
--- NOTE | 2016-06-05 21:18 | ED CARDIAC/CP/PALPITATIONS ---
History of Present Illness General Chief Complaint: Chest Pain Stated Complaint: "I HAVE CHEST PAIN" Source: patient Exam Limitations: no limitations Vital Signs & Intake/Output Vital Signs & Intake/Output Vital Signs Date Time Temp Pulse Resp B/P Pulse O2 O2 Flow FiO2 Ox Delivery Rate 06/06 0132 98.9 61 18 149/82 96 Room Air 06/05 2251 98.9 54 18 154/85 96 Room Air 06/05 2111 90 20 174/95 95 Room Air ED Intake and Output 06/06 0000 06/05 1200 Intake Total Output Total Balance Patient 99 lb 15.99 oz Weight Allergies Coded Allergies: aspirin (Mild, GI DISTRESS 06/02/16) Reconcile Medications Cephalexin (Keflex) 500 MG CAPSULE 1 CAP PO 4 TIMES/DAY PRN TOE INFECTION X 10 DAYS Cyclobenzaprine HCl 5 MG TABLET 1 TAB PO TIDPRN PRN pain Hydrochlorothiazide 25 MG TABLET 1 TAB PO DAILY HTN (Reported) Ibuprofen 600 MG TABLET 1 TAB PO TID PRN PAIN with food Methylprednisolone. (Medrol) 4 MG TAB.DS.PK 1 DP PO AD radiculopathy 6 on day 1 then reduce by one tablet daily until gone Triage Note: PER PT SEEN 2 NIGHTS AGO FOR PINCHED NERVE IN LEG, REPORTS CP ON AND OFF ALL DAY TODAY NOW X 2 HRS UNABLE TO SLEEP CANT LAY FLAT. Triage Nurses Notes Reviewed? yes Onset: Gradual Duration: day(s):, waxing and waning Timing: recent history Quality/Severity: moderate Location: LEFT UPPER CHEST REGION Radiation: no radiation Activities at Onset: none Modifying Factors: Worsens With: palpation. Associated Symptoms: LEFT-SIDED CHEST WALL PAIN HPI: 55-year-old woman in prior good health, on no meds, presents with 1 day history of left upper chest wall pain. She states that when she awoke this morning she had a sharp, throbbing upper chest wall type pain, worse when she took a deep breath. She notes no trauma. The pain does not radiate up her neck or down her arm. She notes the pain is worse with a deep breath. She has no cough phlegm fever dyspnea or wheezing. She is otherwise well and has no other concerns. Past History Travel History Traveled to [place] past 21 day No Medical History Any Pertinent Medical History? see below for history Neurological: ?HX OF STROKE IN COMPUTER BUT PATIENT DENIES SAME. 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 No Review of Systems Review of Systems Constitutional: Reports: no symptoms. EENTM: Reports: no symptoms. Respiratory: Reports: no symptoms. Cardiovascular: Reports: no symptoms. GI: Reports: no symptoms. Genitourinary: Reports: no symptoms. Musculoskeletal: Reports: no symptoms. Skin: Reports: no symptoms. Neurological/Psychological: Reports: no symptoms. Hematologic/Endocrine: Reports: no symptoms. Immunologic/Allergic: Reports: no symptoms. All Other Systems: Reviewed and Negative Physical Exam Physical Exam General Appearance: well developed/nourished, mild distress Head: atraumatic, normal appearance Eyes: Bilateral: normal appearance. Ears, Nose, Throat: normal pharynx, normal ENT inspection Neck: normal inspection, supple, full range of motion Respiratory: normal breath sounds, no respiratory distress, LEFT UPPER CHEST WALL TENDERNESS TO PALPATION Cardiovascular: regular rate/rhythm Gastrointestinal: normal bowel sounds, soft, non-tender Back: normal inspection Extremities: normal inspection Neurologic/Psych: no motor/sensory deficits, awake, alert, oriented x 3 Skin: intact, normal color, warm/dry Core Measures ACS in differential dx? No Severe Sepsis Present: No Septic Shock Present: No Progress Differential Diagnosis: AMI, costochondritis, musculoskeletal pain Plan of Care: Orders Procedure Date/time Status TROPONIN LEVEL 06/06 29 Complete EKG 06/06 29 Active TROPONIN LEVEL 06/05 2116 Complete D-DIMER 06/05 2116 Complete COMPREHENSIVE METABOLIC PANEL 06/05 2116 Complete CBC WITHOUT DIFFERENTIAL 06/05 2116 Complete EKG 06/05 2105 Active Laboratory Tests 06/06/1635: Troponin I < 0.01 06/05/162118: Anion Gap 9, Estimated GFR > 60, BUN/Creatinine Ratio 22.9, Glucose 74, Calcium 9.1, Total Bilirubin 0.6, AST 28, ALT 37, Alkaline Phosphatase 72, Troponin I < 0.01, Total Protein 6.4, Albumin 3.7, Globulin 2.7, Albumin/Globulin Ratio 1.4, D-Dimer 354 H, CBC w Diff NO MAN DIFF REQ, RBC 3.84 L, MCV 79.7 L, MCH 25.8 L, RDW 18.3 H, MPV 7.2 L, Gran % 37.4 L, Lymphocytes % 51.3 H, Monocytes % 9.6 H, Eosinophils % 1.6, Basophils % 0.1, Absolute Granulocytes 1.5, Absolute Lymphocytes 2.1, Absolute Monocytes 0.4, Absolute Eosinophils 0.1, Absolute Basophils 0, PUBS MCHC 32.4 L Diagnostic Imaging: Viewed by Me: Radiology Read, CT Scan. Discussed w/RAD: Radiology Read, CT Scan. Radiology Impression: CHEST ANGIO... NEG...FULL REPORT BELOW. CXR Impression: no acute abnormality, no infiltrates, normal size heart, normal mediastinum Initial ED EKG: normal axis, normal intervals, normal p-waves, normal QRS complex, normal sinus rhythm Comments: PATIENT: MAU CORONA PRESENT AGE: 55 PATIENT ACCOUNT NO: [id number] : 61 LOCATION: [facility] ORDERING PHYSICIAN: LAVERN BERNSTEIN MD SERVICE DATE: 06/05/16 EXAM TYPE: CAT - CTA CHEST-PULMONARY EMBOLISM EXAMINATION: CT ANGIOGRAM OF THE CHEST WITH AND WITHOUT CONTRAST (CT PULMONARY ANGIOGRAM FOR PE) CLINICAL INFORMATION: Chest pain. Positive d-dimer. COMPARISON: CT chest 11/30/2013. CT chest without contrast 01/11/2014. TECHNIQUE: Prior to contrast administration, noncontrast localization images were obtained. Subsequently, multidetector volumetric imaging was performed from the thoracic inlet to below the diaphragms following the administration of 120 mL Omnipaque 350 intravenous contrast. No contrast reaction reported. Sagittal, coronal, and MIP oblique sagittal reformatted images were obtained on the CT workstation, uploaded to PACS, and reviewed. Total exam dose-length product 267 mGy-cm. FINDINGS: QUALITY OF STUDY/CONTRAST BOLUS: Adequate contrast opacification of the pulmonary arterial vasculature. PULMONARY ARTERIES: No evidence of pulmonary embolism to the level of the subsegmental pulmonary arteries. No large central pulmonary emboli. THORACIC AORTA: Normal caliber of the thoracic aorta. No centrally displaced intraluminal flaps to suggest aortic dissection. LUNG: Evaluation of the lung parenchyma is again notable for ill-defined groundglass opacities within the bilateral lungs, notably within the right upper and left lower lobes. These nodular opacities, which are visualized measuring 0.9 x 1.1 cm within the right upper lobe (series 3, image 20) and 0.7 x 0.9 cm within the left lower lobe (series 3, image 28), do not appear significantly changed in size relative to a prior CTA chest from 11/30/2013. No new or enlarging pulmonary nodules are identified. PLEURA: No pleural effusions or pneumothoraces. MEDIASTINUM: Normal heart size, without significant pericardial effusion. Normal three-vessel branching of the aortic arch. No significant mediastinal or hilar adenopathy. Reflux of contrast into the IVC and hepatic veins. This finding is nonspecific but may reflect underlying right heart dysfunction. CHEST WALL/AXILLA: No axillary or internal mammary lymphadenopathy. OSSEOUS STRUCTURES: No acute osseous abnormality. Normal alignment of the imaged thoracic spine. Mild multilevel degenerative changes of the thoracic spine. No visible destructive osseous lesions. UPPER ABDOMEN: No acute findings within the upper abdomen. Incidental note is made of an IVC filter. No reflux of contrast into the hepatic veins to suggest elevated right heart pressures. IMPRESSION: 1. Adequate contrast opacification of the pulmonary arterial vasculature, without evidence of pulmonary embolism to the level of the subsegmental pulmonary arteries. 2. Stable ill-defined groundglass nodules within the right upper lobe as well as the left lower lobe, as described above. No new or enlarging pulmonary nodules are identified. 3. Reflux of contrast into the hepatic veins and IVC. This finding is nonspecific but may reflect underlying right heart dysfunction. VTE: Negative. DICTATED BY: SHAILA BOLANOS MD DATE/TIME DICTATED:06/05/162242 SWEEPING COMPOUND BLENDER:KATE DATE/TIME TRANSCRIBED:06/05/162242 CONFIDENTIAL, DO NOT COPY WITHOUT APPROPRIATE AUTHORIZATION. <Electronically signed in Other Vendor System> SIGNED BY: SHAILA BOLANOS MD 06/05/16 232 PATIENT: MAU CORONA PRESENT AGE: 55 PATIENT ACCOUNT NO: [id number] : 61 LOCATION: [facility] ORDERING PHYSICIAN: LAVERN BERNSTEIN MD SERVICE DATE: 06/05/16 EXAM TYPE: RAD - XRY-PORTABLE CHEST XRAY EXAMINATION: XR PORTABLE CHEST CLINICAL INFORMATION: Chest pain. COMPARISON: Chest x-ray 02/15/2014. TECHNIQUE: Portable AP view of the chest was obtained. FINDINGS: The lungs are well-expanded and clear without focal airspace consolidation. No pleural effusions or pneumothoraces are identified. Cardiomediastinal contours are within normal limits. Soft tissues are unremarkable. No acute osseous abnormality is identified. IMPRESSION: No acute pulmonary process. DICTATED BY: SHAILA BOLANOS MD DATE/TIME DICTATED:06/05/162155 SWEEPING COMPOUND BLENDER:KATE DATE/TIME TRANSCRIBED:06/05/162155 CONFIDENTIAL, DO NOT COPY WITHOUT APPROPRIATE AUTHORIZATION. <Electronically signed in Other Vendor System> SIGNED BY: SHAILA BOLANOS MD 06/05/16 2200 Departure Departure Disposition: HOME OR SELF CARE Condition: Stable Clinical Impression Primary Impression: Chest wall pain Referrals: TASNEEM VINCENT APRN (PCP/Family) Departure Forms: Customer Survey General Discharge Information Comments 06/06/16, 1:25am... trop#2 negative, ct angio without PE, otherwise stable. EKG x 2 also stable.... Pt with reproducible chest wall tenderness on exam... Pt safe for discharge with close follow up. Critical Care Note Critical Care Note Critical Care Time: non-applicable
[2016-06-05 21:40] LABS: ABSOLUTE GRANULOCYTE CT 1.5 /CUMM (1.4-6.5); ABSOLUTE MONOCYTE COUNT 0.4 /CUMM (0.10-0.60); MEAN PLATELET VOLUME 7.2 FL (7.4-10.4); RBC DISTRIBUTION WIDTH 18.3 % (11.5-14.5)
[2016-06-05 21:42] LABS: ABSOLUTE BASOPHIL COUNT 0 /CUMM (0.0-0.2); ABSOLUTE EOSINOPHIL COUNT 0.1 /CUMM (0.0-0.7); ABSOLUTE LYMPH COUNT 2.1 /CUMM (1.2-3.4); BASOPHIL % 0.1 % (0.0-2.0); EOSINOPHIL % 1.6 % (0-5); GRANULOCYTE % 37.4 % (42.2-75.2); HEMATOCRIT 30.6 % (37-47); MEAN CORPUSCULAR HGB 25.8 PG (27.0-31.0); MEAN CORPUSCULAR HGB CONC 32.4 G/DL (33.0-37.0); MEAN CORPUSCULAR VOLUME 79.7 FL (81.0-99.0); PLATELET COUNT 289 /CUMM (130-400); RED BLOOD CELL CT 3.84 /CUMM (4.20-5.40); WHITE BLOOD CELL COUNT 4.1 /CUMM (4.8-10.8)
--- NOTE | 2016-06-05 22:00 | RADIOLOGY REPORT ---
EXAMINATION: XR PORTABLE CHEST CLINICAL INFORMATION: Chest pain. COMPARISON: Chest x-ray 02/15/2014. TECHNIQUE: Portable AP view of the chest was obtained. FINDINGS: The lungs are well-expanded and clear without focal airspace consolidation. No pleural effusions or pneumothoraces are identified. Cardiomediastinal contours are within normal limits. Soft tissues are unremarkable. No acute osseous abnormality is identified. IMPRESSION: No acute pulmonary process.
--- NOTE | 2016-06-05 22:57 | CT SCAN REPORT ---
EXAMINATION: CT ANGIOGRAM OF THE CHEST WITH AND WITHOUT CONTRAST (CT PULMONARY ANGIOGRAM FOR PE) CLINICAL INFORMATION: Chest pain. Positive d-dimer. COMPARISON: CT chest 11/30/2013. CT chest without contrast 01/11/2014. TECHNIQUE: Prior to contrast administration, noncontrast localization images were obtained. Subsequently, multidetector volumetric imaging was performed from the thoracic inlet to below the diaphragms following the administration of 120 mL Omnipaque 350 intravenous contrast. No contrast reaction reported. Sagittal, coronal, and MIP oblique sagittal reformatted images were obtained on the CT workstation, uploaded to PACS, and reviewed. Total exam dose-length product 267 mGy-cm. FINDINGS: QUALITY OF STUDY/CONTRAST BOLUS: Adequate contrast opacification of the pulmonary arterial vasculature. PULMONARY ARTERIES: No evidence of pulmonary embolism to the level of the subsegmental pulmonary arteries. No large central pulmonary emboli. THORACIC AORTA: Normal caliber of the thoracic aorta. No centrally displaced intraluminal flaps to suggest aortic dissection. LUNG: Evaluation of the lung parenchyma is again notable for ill-defined groundglass opacities within the bilateral lungs, notably within the right upper and left lower lobes. These nodular opacities, which are visualized measuring 0.9 x 1.1 cm within the right upper lobe (series 3, image 20) and 0.7 x 0.9 cm within the left lower lobe (series 3, image 28), do not appear significantly changed in size relative to a prior CTA chest from 11/30/2013. No new or enlarging pulmonary nodules are identified. PLEURA: No pleural effusions or pneumothoraces. MEDIASTINUM: Normal heart size, without significant pericardial effusion. Normal three-vessel branching of the aortic arch. No significant mediastinal or hilar adenopathy. Reflux of contrast into the IVC and hepatic veins. This finding is nonspecific but may reflect underlying right heart dysfunction. CHEST WALL/AXILLA: No axillary or internal mammary lymphadenopathy. OSSEOUS STRUCTURES: No acute osseous abnormality. Normal alignment of the imaged thoracic spine. Mild multilevel degenerative changes of the thoracic spine. No visible destructive osseous lesions. UPPER ABDOMEN: No acute findings within the upper abdomen. Incidental note is made of an IVC filter. No reflux of contrast into the hepatic veins to suggest elevated right heart pressures. IMPRESSION: 1. Adequate contrast opacification of the pulmonary arterial vasculature, without evidence of pulmonary embolism to the level of the subsegmental pulmonary arteries. 2. Stable ill-defined groundglass nodules within the right upper lobe as well as the left lower lobe, as described above. No new or enlarging pulmonary nodules are identified. 3. Reflux of contrast into the hepatic veins and IVC. This finding is nonspecific but may reflect underlying right heart dysfunction. VTE: Negative.
[2016-06-06 01:32] VITALS: BP 149/82
== END 2016-06-06 01:37 ==
LOC: ERH 21:05
PROVIDERS: Pediatrics
DX: R07.89 Other chest pain (principal)
CPT/HCPCS: 93005; 93010; 96374; J1885

== ENCOUNTER 2016-06-23 13:12 | Emergency (ER) | payer OTHER, MEDICARE ==
[~2016-06-23] VITALS: Ht 154.9 cm; Wt 59.0 kg
--- NOTE | 2016-06-23 16:08 | ED INFLUENZA/URI COMPLAINT ---
History of Present Illness General Chief Complaint: Upper Respiratory Sx/Fever Stated Complaint: COUGH Source: patient, old records, friend Exam Limitations: no limitations Vital Signs & Intake/Output Vital Signs & Intake/Output Vital Signs Date Time Temp Pulse Resp B/P Pulse O2 O2 Flow FiO2 Ox Delivery Rate 06/23 1724 98.4 80 18 122/78 97 Room Air Room Air 06/23 1325 98.4 84 20 125/82 98 Room Air Allergies Coded Allergies: aspirin (Mild, GI DISTRESS 06/02/16) Reconcile Medications Azithromycin (Zithromax) 250 MG TABLET 1 DP PO AD PNA 2 the first day followed by 1 for days 2-5 Codeine Phosphate/Guaifenesi (Guaifen-Codeine 100-10 MG/5 Ml) 10 MG-100 MG/5 ML LIQUID 10 ML PO Q6HR PRN COUGH Hydrochlorothiazide 25 MG TABLET 1 TAB PO DAILY HTN (Reported) Ondansetron (Zofran Odt) 4 MG TAB.RAPDIS 1 TAB SL TID PRN NAUSEA Triage Note: PT TO ED C/O URI S/S X 2 WEEKS. C/O PRODUCTIVE COUGH WITH YELLOW SPUTUM. AFEBRILE. Triage Nurses Notes Reviewed? yes Onset: Gradual Duration: week(s): (2), constant Timing: recent history Severity: mild, moderate Severity Numbers: 6 Prior Episodes/Possible Cause: occassional episodes No Modifying Factors: none Associated Symptoms: cough, nv HPI: 55-year-old female presents emergency room complaining of 2 week history of a persisting constant productive cough of yellow white sputum associated with nausea vomiting. Patient denies history of COPD she is not O2 dependent no shortness of breath no chest pain. She denies any abdominal pain diarrhea fevers or chills. She's not sought care for the symptoms until today. She's been using [id number]-inv-[id number] Robitussin without improvement. There are no associated symptoms or modifying factors otherwise. She does not smoke (HOWARD TURNER) Past History Travel History Traveled to [place] past 21 day No Medical History Any Pertinent Medical History? see below for history Neurological: ?HX OF STROKE IN COMPUTER BUT PATIENT DENIES SAME. 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 No (HOWARD TURNER) Review of Systems Review of Systems Constitutional: Reports: see HPI. All Other Systems: Reviewed and Negative Comments Review of systems: See HPI, All other systems negative. Constitutional, no chills no fever, no malaise HEENT: no sore throat no congestion, no ear pain Cardiovascular: No chest pain , no palpitation Skin, no rashes, no change in skin Respiratory: No dyspnea cough no sputum no hemoptysis GI: nausea vomiting, no diarrhea, no bloating/constipation : No dysuria Muscle skeletal: No joint pain, no back pain, no neck pain, Neurologic no headache Psych: No stress no anxiety no depression,. Heme/endocrine: No bruising no bleeding Immunology: No lymphadenopathy (HOWARD TURNER) Physical Exam Physical Exam General Appearance: well developed/nourished, no apparent distress, alert, awake Ears, Nose, Throat: normal ENT inspection, moist mucous membrane, hearing grossly normal, Tympanic normal Comments: Well-developed well-nourished person in no acute distress HEENT: Normal EENT exam; PERRL, EOMI, HEAD is atraumatic. moist mucous membranes. Neck: Supple, normal range of motion Back:Full range of motion Cardiovascular: Regular rate and rhythms no murmurs rubs or gallops, normal JVP Respiratory: No respiratory distress. Patient speaking in full complete sentences. Breath sounds clear to auscultation bilaterally: NO W/R/R Extremity: No edema, full range of motion of extremities Neuro: Alert oriented x3, motor sensory normal, There were no obvious focal neurologic abnormalities. Skin: No appreciable rash on exposed skin, skin is warm and dry. Psych: Mood and affect is normal, memory and judgment is normal. Core Measures Severe Sepsis Present: No Septic Shock Present: No (HOWARD TURNER) Progress Differential Diagnosis: influenza, pneumonia, pharyngitis, sinusitis, bronchitis Plan of Care: X-ray ordered patient medicated with azithromycin 500 mg by mouth Zofran 4 ODT I discussed with the patient at length all of their results. Patient clinically appears well speaking full complete sentences afebrile nontoxic appearing I had an extensive conversation regarding need for close follow up with their primary care physician this week as well as return precautions. I answered all of their questions, they feel comfortable with the plan and follow-up care. I discussed the medications that they will receive with the patient. I gave them signs and symptoms that could indicate an adverse reaction. I have advised them to limit their activities until they can see how they respond to the medication. Diagnostic Imaging: Viewed by Me: Radiology Read. Discussed w/RAD: Radiology Read. Radiology Impression: PATIENT: MAU CORONA PRESENT AGE: 55 PATIENT ACCOUNT NO: [id number] : 61 LOCATION: [facility] ORDERING PHYSICIAN: HOWARD TREVINO SERVICE DATE: 06/23/16 EXAM TYPE: RAD - XRY- CHEST XRAY, PA AND LATERAL EXAMINATION: XR CHEST CLINICAL INFORMATION: Cough. Dyspnea. COMPARISON: Chest CT 06/05/2016. Radiographs from 06/05/2016. TECHNIQUE : 2 views of the chest were obtained. FINDINGS: The lungs are well expanded. There is a patchy left basilar opacity which is increased from previous. No pleural effusion or pneumothorax. No edema. The cardiomediastinal silhouette is unchanged. Degenerative changes of the spine. IMPRESSION: Increased patchy left basilar opacity could represent atelectasis or pneumonia. DICTATED BY: ALEJANDRO REYNA MD DATE/TIME DICTATED:06/23/161656 BURIAL VAULT SETTER: KATE DATE/TIME TRANSCRIBED:06/23/161656 CONFIDENTIAL, DO NOT COPY WITHOUT APPROPRIATE AUTHORIZATION. <Electronically signed in Other Vendor System> SIGNED BY: ALEJANDRO REYNA MD 06/23/16 1702 Initial ED EKG: none (CHARISMA TREVINO,HOWARD) Departure Departure Time of Disposition: 1711 Disposition: HOME OR SELF CARE Condition: Stable Clinical Impression Primary Impression: Pneumonia Referrals: TASNEEM VINCENT APRN (PCP/Family) Additional Instructions: ZPAK DIRECTED. TYLENOL ORMOTRIN NEEDED. ZOFRAN FOR NAUSEA. Follow-up with YOUR primary care physician or return in 48 hours for check up These prescription percent to your pharmacy Departure Forms: Customer Survey General Discharge Information Prescriptions: Current Visit Scripts Azithromycin (Zithromax) 1 DP PO AD #6 TAB 2 the first day followed by 1 for days 2-5 Codeine Phosphate/Guaifenesi (Guaifen-Codeine 100-10 MG/5 Ml) 10 ML PO Q6HR PRN COUGH #200 ML Ondansetron (Zofran Odt) 1 TAB SL TID PRN NAUSEA #10 TAB (HOWARD TURNER) PA/POWER DIGGER OPERATOR Co-Sign Statement Statement: ED Attending supervision documentation- [] I saw and evaluated the patient. I have also reviewed all the pertinent lab results and diagnostic results. I agree with the findings and the plan of care as documented in the PA's/POWER DIGGER OPERATOR's documentation. [X] I have reviewed the ED Record and agree with the PA's/POWER DIGGER OPERATOR's documentation. [] Additions or exceptions (if any) to the PAs/POWER DIGGER OPERATOR's note and plan are summarized below: [] (JAMARCUS BURNS DO
--- NOTE | 2016-06-23 17:02 | RADIOLOGY REPORT ---
EXAMINATION: XR CHEST CLINICAL INFORMATION: Cough. Dyspnea. COMPARISON: Chest CT 06/05/2016. Radiographs from 06/05/2016. TECHNIQUE: 2 views of the chest were obtained. FINDINGS: The lungs are well expanded. There is a patchy left basilar opacity which is increased from previous. No pleural effusion or pneumothorax. No edema. The cardiomediastinal silhouette is unchanged. Degenerative changes of the spine. IMPRESSION: Increased patchy left basilar opacity could represent atelectasis or pneumonia.
[2016-06-23] MEDS ORDERED: ZOFRAN ODT4 M1 SL (17:18)
[2016-06-23] MEDS ORDERED: GUAIFEN-CODEIN118 M1 PO (17:18)
[2016-06-23] MEDS ORDERED: ZITHROMAX250 M2 PO (17:18)
[2016-06-23 17:24] VITALS: BP 122/78
[2016-06-24] MEDS ORDERED: AMOXICILLIN500 M3 PO (00:26)
== END 2016-06-23 17:25 ==
LOC: ERH 13:12
DX: J18.9 Pneumonia, unspecified organism (principal); Z72.0 Tobacco use
CPT/HCPCS: J0456; J2405; J3101

== ENCOUNTER 2016-06-23 23:15 | Emergency (ER) | payer OTHER, MEDICARE ==
[~2016-06-23] VITALS: Ht 154.9 cm; Wt 59.0 kg
[~2016-06-23 23:15] MED LIST changes: +GUAIFEN-CODEIN118 M1 PO; +ZITHROMAX250 M2 PO; +ZOFRAN ODT4 M1 SL
--- NOTE | 2016-06-24 00:10 | ED CARDIAC/CP/PALPITATIONS ---
History of Present Illness General Chief Complaint: Dyspnea (COPD, CHF, Other) Stated Complaint: SOB Source: patient Exam Limitations: no limitations Allergies Coded Allergies: aspirin (Mild, GI DISTRESS 06/02/16) Triage Note: TRIAGE: PATIENT TO ER FROM HOME REPORTS SEEN EARLIER AND DX W/ PNEUMONIA. PATIENT REPORTS, "BUT MY CHEST STILL HURTS WHEN I BREATHE." PATIENT REPORTS WAS GIVEN RX, TOOK FIRST DOSE HERE AND HASN'T TAKEN OTHER DOSES YET. PATIENT REPORTS PRODUCTIVE COUGH, THICK W/ YELLOW PHLEM W/ BLOOD TINGED. O2:97%RA, SPEECH CLEAR. NO ACUTE DISTRESS. Triage Nurses Notes Reviewed? yes Onset: Abrupt Duration: hour(s): ( 9 pm) Timing: recent history Quality/Severity: moderate, severe Location: central Radiation: no radiation Activities at Onset: none HPI: 55-year-old female that was seen here earlier today and diagnosed with pneumonia comes in with complaints of chest pain that began around 9 PM tonight. Patient had been experiencing cough with mucus production which is why she came into the hospital initially today. Her chest pain began around 9 PM. It is located in the center of her upper chest. The pain is sharp. Nonradiating. Patient had 3 episodes of vomiting earlier. (CHRISTOPHE TREVINO,NATALYA) Vital Signs & Intake/Output Vital Signs & Intake/Output Vital Signs Date Time Temp Pulse Resp B/P Pulse O2 O2 Flow FiO2 Ox Delivery Rate 06/24 0354 98.3 60 20 116/60 98 Room Air Room Air 06/24 0023 99 Room Air 06/23 2357 99.2 66 18 153/86 97 Room Air ED Intake and Output 06/24 0000 06/23 1200 Intake Total Output Total Balance Patient 130 lb Weight Reconcile Medications Amoxicillin 500 MG TABLET 2 TAB PO TID pneumonia Azithromycin (Zithromax) 250 MG TABLET 1 DP PO AD PNA 2 the first day followed by 1 for days 2-5 Codeine Phosphate/Guaifenesi (Guaifen-Codeine 100-10 MG/5 Ml) 10 MG-100 MG/5 ML LIQUID 10 ML PO Q6HR PRN COUGH Hydrochlorothiazide 25 MG TABLET 1 TAB PO DAILY HTN (Reported) Ondansetron (Zofran Odt) 4 MG TAB.RAPDIS 1 TAB SL TID PRN NAUSEA (BELKYS KHAN,LIZETH) Past History Travel History Traveled to [place] past 21 day No Medical History Any Pertinent Medical History? see below for history Neurological: ?HX OF STROKE IN COMPUTER BUT PATIENT DENIES SAME. 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 No (NATALYA WALLS) Review of Systems Review of Systems Constitutional: Reports: no symptoms. EENTM: Reports: no symptoms. Respiratory: Reports: see HPI. Cardiovascular: Reports: see HPI. GI: Reports: no symptoms. Genitourinary: Reports: no symptoms. Musculoskeletal: Reports: no symptoms. Skin: Reports: no symptoms. Neurological/Psychological: Reports: no symptoms. Hematologic/Endocrine: Reports: no symptoms. Immunologic/Allergic: Reports: no symptoms. All Other Systems: Reviewed and Negative (NATALYA WALLS) Physical Exam Physical Exam General Appearance: well developed/nourished, no apparent distress, alert Head: atraumatic, normal appearance Eyes: Bilateral: normal appearance, EOMI. Ears, Nose, Throat: normal pharynx, normal ENT inspection, hearing grossly normal Neck: normal inspection Respiratory: normal breath sounds, no respiratory distress Cardiovascular: regular rate/rhythm Back: normal inspection Extremities: normal inspection Neurologic/Psych: awake, alert, oriented x 3, normal gait Skin: intact, normal color Core Measures ACS in differential dx? No Severe Sepsis Present: No Septic Shock Present: No (NATALYA WALLS) Progress Differential Diagnosis: AMI, aortic dissection, atrial fibrillation, cholecystitis, costochondritis, musculoskeletal pain, myocarditis, pancreatitis, pericarditis, pneumonia, pneumothorax, pulmonary embolism, PUD/GERD, PVCs/PACs, rib fracture, sepsis, unstable angina, V-fib/V-Tach, WPW syndrome Plan of Care: Orders Procedure Date/time Status TROPONIN LEVEL 06/24 0400 Complete EKG 06/240 Active Telemetry/Studio Assistant 06/24 8 Active TROPONIN LEVEL 06/24 5 Complete COMPREHENSIVE METABOLIC PANEL 03/29 0006 Complete CBC WITHOUT DIFFERENTIAL 03/29 0006 Complete EKG 06/23 2337 Active Laboratory Tests 06/24/16 0350: Troponin I < 0.01 06/24/16 0026: Anion Gap 6, Estimated GFR > 60, BUN/Creatinine Ratio 17.1, Glucose 86, Calcium 9.7, Total Bilirubin 0.4, AST 18, ALT 30, Alkaline Phosphatase 85, Troponin I < 0.01, Total Protein 6.5, Albumin 3.7, Globulin 2.8, Albumin/Globulin Ratio 1.3, CBC w Diff NO MAN DIFF REQ, RBC 3.98 L, MCV 77.6 L, MCH 25.9 L, RDW 18.3 H, MPV 6.8 L, Gran % 38.0 L, Lymphocytes % 47.7, Monocytes % 12.3 H, Eosinophils % 1.7, Basophils % 0.3, Absolute Granulocytes 1.7, Absolute Lymphocytes 2.1, Absolute Monocytes 0.5, Absolute Eosinophils 0.1, Absolute Basophils 0, PUBS MCHC 33.3 1 AM PATIENT SIGNED OUT TO ME BY BELINDA SHEETS. PENDING TROPONIN. WILL STAY FOR 2ND SET IF NEGATIVE. REPEAT TROPONIN/EKG NEGATIVE. PATIENT STABLE ON DISCHARGE. (LIZETH RIZVI MD) Initial ED EKG: normal intervals, normal p-waves, normal QRS complex, normal sinus rhythm, rate (55) (NATALYA WALLS) Repeat EKG: unchanged (LIZETH RIZIV MD) Departure Departure Condition: Stable Clinical Impression Primary Impression: Atypical chest pain Referrals: TASNEEM VINCENT APRN (PCP/Family) Departure Forms: Customer Survey General Discharge Information Prescriptions: Current Visit Scripts Amoxicillin 2 TAB PO TID #60 TAB (NATALYA WALLS) Departure Time of Disposition: 524 Disposition: HOME OR SELF CARE Additional Instructions: Take the antibiotics as directed and follow up with your doctor in the office. amoxicillin was sent into your pharmacy by BELINDA Sheets. Return if worse. PA/SWISS TYPE SCREW MACHINE OPERATOR Co-Sign Statement Statement: ED Attending supervision documentation- [X] I saw and evaluated the patient. I have also reviewed all the pertinent lab results and diagnostic results. I agree with the findings and the plan of care as documented in the PA's/SWISS TYPE SCREW MACHINE OPERATOR's documentation. [X] I have reviewed the ED Record and agree with the PA's/SWISS TYPE SCREW MACHINE OPERATOR's documentation. [] Additions or exceptions (if any) to the PAs/SWISS TYPE SCREW MACHINE OPERATOR's note and plan are summarized below: [] (BELKYS KHAN,LIZETH) Critical Care Note Critical Care Note Critical Care Time: non-applicable (CHRISTOPHE TREVINO,NATALYA)
[2016-06-24] MEDS ORDERED: AMOXICILLIN500 M3 PO (00:26)
[2016-06-24 00:39] LABS: ABSOLUTE BASOPHIL COUNT 0 /CUMM (0.0-0.2); ABSOLUTE EOSINOPHIL COUNT 0.1 /CUMM (0.0-0.7); ABSOLUTE GRANULOCYTE CT 1.7 /CUMM (1.4-6.5); ABSOLUTE LYMPH COUNT 2.1 /CUMM (1.2-3.4); ABSOLUTE MONOCYTE COUNT 0.5 /CUMM (0.10-0.60); BASOPHIL % 0.3 % (0.0-2.0); EOSINOPHIL % 1.7 % (0-5); HEMATOCRIT 30.9 % (37-47); MEAN CORPUSCULAR HGB 25.9 PG (27.0-31.0); MEAN CORPUSCULAR HGB CONC 33.3 G/DL (33.0-37.0); MEAN CORPUSCULAR VOLUME 77.6 FL (81.0-99.0); MEAN PLATELET VOLUME 6.8 FL (7.4-10.4); PLATELET COUNT 384 /CUMM (130-400); RBC DISTRIBUTION WIDTH 18.3 % (11.5-14.5); RED BLOOD CELL CT 3.98 /CUMM (4.20-5.40); WHITE BLOOD CELL COUNT 4.4 /CUMM (4.8-10.8)
[2016-06-24 03:54] VITALS: BP 116/60
== END 2016-06-24 06:11 ==
LOC: ERH 23:15
PROVIDERS: Physician Assistant Medical
DX: R07.89 Other chest pain (principal)
CPT/HCPCS: 93005; 93010